=== PATIENT | male | born 1965 | race Caucasian/White ===

== ENCOUNTER 2020-06-17 12:51 | Outpatient (CLI) | payer BC, SELFPAY ==
[2020-06-17 13:15] LABS: Hematocrit 45.3 % (40.0-54.0); Hemoglobin 15.1 g/dL (14.0-18.0); Mean Corpuscular HGB Conc 33.3 g/dL (32.0-36.0); Mean Corpuscular Hemoglobin 30.8 pg (27.0-31.0); Mean Corpuscular Volume 92.4 fL (78.0-102.0); Mean Platelet Volume 11.4 fl (8.7-11.0); Platelet Count Result 258 K/mm3 (150-420); Red Cell Distribution Width 12.8 % (11.6-14.4); White Blood Count 11.5 K/mm3 (4.8-10.8)
[2020-06-17 14:05] LABS: Alanine Aminotransferase 41 U/L (16-63); Alkaline Phosphatase 106 U/L (46-116); Anion Gap 10 mmol/L (8-16); Aspartate Amino Transferase 20 U/L (15-37); Bilirubin,Total 0.7 mg/dL (0.00-1.00); Blood Urea Nitrogen 16 mg/dL (7-18); Calcium 8.8 mg/dL (8.5-10.1); Carbon Dioxide 27 mmol/L (21-32); Chloride 103 mmol/L (98-108); Cholesterol 208 mg/dL (0-200); Estimated Glomerular Filt Rate > 60; Glucose 85 mg/dL (70-99); HDL Direct 34 mg/dL (40-60); Iron 74 ug/dL (65-175); LDL Cholesterol Calculated 144 mg/dL (<130); Osmolality Calculated 290 mOsm/kg (285-295); Percent Iron Saturation 27 % (12-57); Potassium 3.7 mmol/L (3.5-5.1); Prostate Specific Antigen 0.6 ng/mL (< OR = 4.0); Sodium 140 mmol/L (136-145); Thyroid Stimulating Hormone 4.52 uIU/mL (0.36-3.74); Total Protein 7.8 g/dL (6.4-8.2); Triglycerides 152 mg/dL (0-150)
[2020-06-24 11:16] LABS: Vitamin D 25 Hydroxy 20 ng/mL (30-100)
== END 2020-06-17 12:52 | disposition home or self-care (01) ==
LOC: CHSLAB 13:00
DX: Z00.00 Encounter for general adult medical examination without abnormal findings (principal)
CPT/HCPCS: 36415; 80053; 80061; 82306; 83540; 83550; 84153; 84443; 85027; G0103

== ENCOUNTER 2021-07-16 12:04 | Outpatient (CLI) | payer BC, SELFPAY ==
[2021-07-16 12:21] LABS: Hematocrit 46.8 % (40.0-54.0); Hemoglobin 15.2 g/dL (14.0-18.0); Mean Corpuscular HGB Conc 32.5 g/dL (32.0-36.0); Mean Corpuscular Hemoglobin 30.6 pg (27.0-31.0); Mean Corpuscular Volume 94.2 fL (78.0-102.0); Platelet Count Result 265 K/mm3 (150-420); Red Blood Count 4.97 M/mm3 (4.70-6.10); Red Cell Distribution Width 13.4 % (11.6-14.4); White Blood Count 7.1 K/mm3 (4.8-10.8)
[2021-07-16 12:57] LABS: Alanine Aminotransferase 41 U/L (16-63); Albumin Level 3.7 g/dL (3.4-5.0); Alkaline Phosphatase 109 U/L (46-116); Anion Gap 9 mmol/L (8-16); Aspartate Amino Transferase 20 U/L (15-37); Bilirubin,Total 0.4 mg/dL (0.00-1.00); Blood Urea Nitrogen 11 mg/dL (7-18); Calcium 8.4 mg/dL (8.5-10.1); Carbon Dioxide 26 mmol/L (21-32); Chloride 106 mmol/L (98-108); Cholesterol 181 mg/dL (0-200); Estimated Glomerular Filt Rate > 60; Glucose 91 mg/dL (70-99); HDL Direct 33 mg/dL (40-60); Iron 46 ug/dL (65-175); LDL Cholesterol Calculated 114 mg/dL (<130); Osmolality Calculated 291 mOsm/kg (285-295); Percent Iron Saturation 17 % (12-57); Potassium 3.7 mmol/L (3.5-5.1); Prostate Specific Antigen 0.6 ng/mL (< OR = 4.0); Sodium 141 mmol/L (136-145); Thyroid Stimulating Hormone 1.95 uIU/mL (0.36-3.74); Total Protein 7.3 g/dL (6.4-8.2); Triglycerides 170 mg/dL (0-150)
[2021-07-21 22:34] LABS: Vitamin D 1,25 (OH)2 Total 32 pg/mL (18-72); Vitamin D2 1,25 (OH)2 <8 pg/mL; Vitamin D3 1,25 (OH)2 32 pg/mL
== END 2021-07-16 12:05 | disposition home or self-care (01) ==
LOC: CHSLAB 12:09
DX: Z00.00 Encounter for general adult medical examination without abnormal findings (principal); Z87.19 Personal history of other diseases of the digestive system; E78.5 Hyperlipidemia, unspecified; E03.9 Hypothyroidism, unspecified; Z12.5 Encounter for screening for malignant neoplasm of prostate; E55.9 Vitamin D deficiency, unspecified
CPT/HCPCS: 36415; 80053; 80061; 82652; 83540; 83550; 84153; 84443; 85027

== ENCOUNTER 2024-09-14 07:18 | Outpatient (CLI) | payer BC, SELFPAY ==
[2024-09-14 07:53] LABS: Hematocrit 46.2 % (40.0-54.0); Hemoglobin 15.3 g/dL (14.0-18.0); Mean Corpuscular HGB Conc 33.1 g/dL (32-36); Mean Corpuscular Hemoglobin 29.6 pg (27.0-31.0); Mean Corpuscular Volume 89.4 fL (78.0-102.0); Mean Platelet Volume 11.6 fl (8.7-11.0); Platelet Count Result 245 K/mm3 (150-420); Red Blood Count 5.17 M/mm3 (4.70-6.10); Red Cell Distribution Width 12.9 % (11.6-14.4)
[2024-09-14 08:02] LABS: Hemoglobin A1C 5.7 % (<5.7)
[2024-09-14 08:43] LABS: Alanine Aminotransferase 39 U/L (16-63); Albumin Level 3.9 g/dL (3.4-5.0); Blood Urea Nitrogen 42 mg/dL (7-18); Chloride 103 mmol/L (98-108); Cholesterol 190 mg/dL (0-200); Estimated Glomerular Filt Rate > 60; Glucose 102 mg/dL (70-99); Osmolality Calculated 304 mOsm/kg (285-295); Potassium 3.3 mmol/L (3.5-5.1); Prostate Specific Antigen 0.9 ng/mL (< OR = 4.0); Sodium 142 mmol/L (136-145); Total Protein 7.7 g/dL (6.4-8.2); Triglycerides 130 mg/dL (0-150)
[2024-09-14 09:24] LABS: Aspartate Amino Transferase 23 U/L (15-37); Bilirubin,Total 1.1 mg/dL (0.00-1.00); HDL Direct 34 mg/dL (40-60); LDL Cholesterol Calculated 130 mg/dL (<130)
[2024-09-14 09:44] LABS: Alkaline Phosphatase 109 U/L (46-116); Anion Gap 11 mmol/L (4-12); Carbon Dioxide 28 mmol/L (21-32)
[2024-09-15 23:47] LABS: Thyroid Stimulating Hormone 5.13 uIU/mL (0.36-3.74)
[2024-09-17 02:25] LABS: Vitamin D 25 Hydroxy 39 ng/mL (30-100)
== END 2024-09-14 07:19 | disposition home or self-care (01) ==
LOC: CHSLAB 07:22
DX: Z00.00 Encounter for general adult medical examination without abnormal findings (principal); N18.2 Chronic kidney disease, stage 2 (mild); R73.03 Prediabetes; E78.5 Hyperlipidemia, unspecified; E03.9 Hypothyroidism, unspecified; E55.9 Vitamin D deficiency, unspecified; Z12.5 Encounter for screening for malignant neoplasm of prostate
CPT/HCPCS: 36415; 80053; 80061; 82306; 83036; 84153; 84443; 85027; G0103